=== PATIENT | male | born 1995 | race Hispanic/Latino ===

== ENCOUNTER → 2024-10-22 | Day surgery (SDC) | payer OTHER ==
[~2024-10-22] MED LIST: ACETAMINOPHEN 1000 MG/100 ML 100 ML IV ONE; DEXAMETHASONE SOD PHOS INJ 4 MG/ML SDV ONE; EYE LUBRICANT OPTH OINT 3.5GM TUBE OP ONE; FENTANYL CITRATE/PF 100MCG/2 ML INJ ONE; GLYCOPYRROLATE INJ 0.2 MG/ML VIAL ONE; LACTATED RINGER'S 1,000 ML ONE; LIDOCAINE HCL 2% LOCAL INJ 5 ML SDV VIAL INJ ONE; NEOSTIGMINE 1 MG/ML 10ML VIAL ONE; ONDANSETRON HCL INJ 2MG/ML 2ML 2 MG/ML VIAL ONE; PREDNISONE20 MG PO; PROPOFOL IV EMULSION 10 MG/ML 20 ML VIAL ONE; ROCURONIUM BROMIDE 1 ML IV ONE; SEVOFLURANE INHAL SOLN 250 ML PEN BTL ONE
[2024-10-22] MEDS: FENTANYL CITRATE/PF 100MCG/2 ML INJ ONE (10:15)
[2024-10-22 11:02] VITALS: BP 141/86; PULSE 66; RESP 18; O2SAT 98
[2024-10-22] MEDS: ACETAMINOPHEN/CODEINE 300MG - 30MG TAB ONE (11:13)
== END | disposition home or self-care (01) ==
LOC: OR 06:45
PROVIDERS: ATTEND Otolaryngology Otolaryngology/Facial Plastic Surgery
DX: J35.01 Chronic tonsillitis (principal); R19.6 Halitosis; R06.83 Snoring; Z88.2 Allergy status to sulfonamides
CPT/HCPCS: 42826; 88304; J0131; J1100; J2003; J2405; J2704; J2710; J3010; J7121